=== PATIENT | female | born 1975 | race Caucasian/White ===

== ENCOUNTER → 2019-03-19 | Outpatient (CLI) | payer OTHER ==
--- NOTE | 2019-03-25 17:19 | KCIC ---
Bilateral digital screening mammograms with 3-D tomosynthesis: Reason for examination: Routine screening. Comparison is made to previous studies dated 12/16/2017 and 08/29/2016. Bilateral mammograms in CC and oblique projections were obtained with 2-D imaging and 3-D tomosynthesis imaging on a Siemens Inspiration unit and reviewed on the workstation. Interpretation was made with the benefit of CAD. The skin and nipples show no abnormalities. No abnormal axillary lymph nodes are seen. The breast parenchyma shows scattered fatty and fibroglandular density. (Breast density: Category B.) There are small nodules consistent with intramammary lymph nodes in the upper outer quadrant of the right breast. There are no other dominant masses, suspicious calcifications or architectural distortion. Impression: No evidence of malignancy. Recommend routine screening. BI-RAD Category 2: Benign. "Our facility is accredited by the [employer] Mammography Program." This patient's information has been entered into a reminder system for the patient to be notified with the results of her examination and a target date for the next mammogram. Electronically signed by: Trisha Garcia MD (03/25/2019 5:16 PM) [id number]
== END | disposition home or self-care (01) ==
LOC: KCIC MAMMO 14:25
PROVIDERS: ATTEND Clinical Nurse Specialist Family Health
DX: Z12.31 Encounter for screening mammogram for malignant neoplasm of breast (principal); N63.11 Unspecified lump in the right breast, upper outer quadrant
CPT/HCPCS: 77063; 77067

== ENCOUNTER → 2021-02-20 | Outpatient (CLI) | payer OTHER ==
--- NOTE | 2021-02-21 08:18 | KCIC ---
3d digital tomography Bilateral History: Routine screening Comparison: March 19, 2019 mammogram. Findings: Breast Tissue Density B : The breast tissue is composed of mixed fatty and fibroglandular tissue. There are no suspicious masses, malignant appearing calcifications, or areas of architectural distort ion. Impression: No suspicious findings. ASSESSMENT: BI-RADS Category 1: Negative. Recommendation: Routine screening mammograms. The patient will receive a letter with the results in the mail. Patient information is entered into the mammography reminder system with a target due date for the ne xt screening mammogram. The patient will receive a reminder. Electronically signed by: Monica Chauhan MD (02/21/2021 8:16 AM) [id number]
== END ==
LOC: KCIC MAMMO 07:55
PROVIDERS: ATTEND Clinical Nurse Specialist Family Health
DX: Z12.31 Encounter for screening mammogram for malignant neoplasm of breast (principal)
CPT/HCPCS: 77063; 77067